=== PATIENT | male | born 1975 | race Caucasian/White ===

== ENCOUNTER 2017-02-12 20:11 | Emergency (ER) | payer OTHER ==
--- NOTE | 2017-02-12 20:41 | EDPHY ---
H & P Stated Complaint: right shoulder injury Time Seen by Provider: 02/12/17 20:40 HPI/ROS: CHIEF COMPLAINT: Right shoulder injury HISTORY OF PRESENT ILLNESS: The patient presents the ED with complaints of acute right shoulder plane. He collided with another player while playing tennis. The patient did not fall onto an outstretched hand but has moderate to severe tenderness over his right AC joint and biceps tendon. His pain is worsened with movement. The patient did not strike his head or lose consciousness. He denies any associated numbness or weakness in the right upper extremity. REVIEW OF SYSTEMS: A comprehensive 10 point review of systems is otherwise negative aside from elements mentioned in the history of present illness. Source: Patient Exam Limitations: No limitations - Personal History Current Tetanus Diphtheria and Acellular Pertussis (TDAP): Unsure - Medical/Surgical History Hx Asthma: No Hx Chronic Respiratory Disease: No Hx Diabetes: No Hx Cardiac Disease: No Hx Renal Disease: No Hx Cirrhosis: No Hx Alcoholism: No Hx HIV/AIDS: No Hx Splenectomy or Spleen Trauma: No Other PMH: denies - Social History Smoking Status: Never smoked - Physical Exam Exam: General Appearance: Alert, no distress Head: Atraumatic Neck: Nontender, trachea midline Respiratory: Tenderness to palpation over the right AC joint Cardiovascular: Regular rate and rhythm Abdomen: Abdomen is soft and nontender, pelvis stable Skin: No lacerations, No abrasion Back: No midline T/L/S pain Extremities: Tenderness to palpation over the right AC joint and biceps tendon , limited range of motion secondary to pain Neurological: 5/5 strength noted in the right upper extremity, sensation intact to light touch Constitutional: Initial Vital Signs Temperature (C) 36.8 C 02/12/17 20:15 Heart Rate 81 02/12/17 20:15 Respiratory Rate 20 02/12/17 20:15 Blood Pressure 118/77 02/12/17 20:15 O2 Sat (%) 95 02/12/17 20:15 O2 Delivery Mode Room Air Allergies/Adverse Reactions: No Known Allergies Allergy (Unverified 02/12/17 20:15) Home Medications: Medication Instructions Recorded Hydrocodone/APAP 5/325 [Whick 1 - 2 each PO Q6 PRN #20 tab 02/12/17 5/325] Medical Decision Making - Diagnostics Imaging Results: Right shoulder x-ray: Images reviewed by myself, grade 1 AC separation present , no fracture dislocation. ED Course/Re-evaluation: The patient presents to the ED for evaluation of right elbow injury. The patient is noted to have a likely grade 2 AC separation. There is no evidence of an obvious surgical fracture or dislocation. The patient has been placed in a sling. He was given oral Whick in the emergency department. The patient will be discharged home with customary aftercare instructions and follow-up instructions. He is advised to seek further orthopedic consultation for any persistent pain, swelling or decreased range of motion as this may be the sign of a soft tissue injury not noted on the x-ray today. He has been referred to our on-call orthopedic surgeon, Dr. Tong Escobedo, for any ongoing symptoms. Differential Diagnosis: Differential diagnosis considered includes fracture, sprain, dislocation Departure - Departure Disposition: Home, Routine, Self-Care Clinical Impression: AC separation, type 2 Qualifiers: Encounter type: initial encounter Laterality: right Qualified Code(s): S43.101A - Unspecified dislocation of right acromioclavicular joint, initial encounter Condition: Good Instructions: Shoulder Separation Exercises (GEN) Additional Instructions: 1. Sling as needed for comfort. 2. Take Ibuprofen or Motrin 600 mg by mouth three times a day. 3. Whick as needed for severe pain 4. Apply ice 30 min at a time 4 to 5 times a day for next several days. 5. Follow up with the orthopedic surgeon you have been referred to for any pain , swelling, limited range of motion which persists past 7-10 days as this may be the sign of a soft tissue injury not noted on the x-ray today. Referrals: Rodrigue Escobedo MD [Medical Doctor] - As per Instructions
[2017-02-12] MEDS ORDERED: HYDROCODONE/APAP 5/325 TAB PO ONE (20:47)
[2017-02-12] MEDS ORDERED: HYDROCOD/APAP 5/325 PREPACK#6 BTL TAKEHOME ONE (20:53)
[2017-02-12 22:07] VITALS: BP 118/74; PULSE 72; RESP 16; TEMP 98.1; O2SAT 97
== END 2017-02-12 21:25 | disposition home or self-care (01) ==
DX: S43.101A Unspecified dislocation of right acromioclavicular joint, initial encounter (principal); W50.0XXA Accidental hit or strike by another person, initial encounter; Y99.8 Other external cause status; Y93.73 Activity, racquet and hand sports